=== PATIENT | female | born 1975 | race Caucasian/White ===

== ENCOUNTER 2017-01-26 10:02 | Emergency (ER) | payer MEDICAID ==
[~2017-01-26] VITALS: Ht 160 cm; Wt 70.0 kg
[2017-01-26 10:18] VITALS: BP 128/68
[2017-01-26] MEDS ORDERED: ACETAMINOPHEN 325MG TABLET PO ONE (11:15)
== END 2017-01-26 11:39 | disposition home or self-care (01) ==
LOC: ER 10:51
DX: H72.91 Unspecified perforation of tympanic membrane, right ear (principal); J06.9 Acute upper respiratory infection, unspecified
CPT/HCPCS: 99282

== ENCOUNTER 2017-06-03 11:48 | Emergency (ER) | payer MEDICAID ==
[~2017-06-03] VITALS: Ht 160 cm; Wt 70.0 kg
[2017-06-03] MEDS ORDERED: KETOROLAC 60MG/2ML VIAL IM STA (14:33)
[2017-06-03 14:39] VITALS: BP 117/71
== END 2017-06-03 16:04 | disposition home or self-care (01) ==
LOC: ER 15:57
DX: K08.89 Other specified disorders of teeth and supporting structures (principal); Z98.890 Other specified postprocedural states
CPT/HCPCS: 96372; 99283; J1885

== ENCOUNTER 2017-12-25 17:53 | Emergency (ER) | payer MEDICAID ==
[~2017-12-25] VITALS: Ht 160 cm; Wt 70.0 kg
[2017-12-25 18:25] VITALS: BP 110/91
== END 2017-12-25 22:00 | disposition left against medical advice (07) ==
LOC: ER 18:38
DX: J02.9 Acute pharyngitis, unspecified (principal); R05 Cough; R09.3 Abnormal sputum; H92.09 Otalgia, unspecified ear
CPT/HCPCS: 99281

== ENCOUNTER 2021-03-13 20:40 | Emergency (ER) | payer MEDICAID ==
[~2021-03-13] VITALS: Ht 160 cm; Wt 78.0 kg
[2021-03-13 20:45] VITALS: BP 116/78
[2021-03-13] MEDS ORDERED: ACETAMINOPHEN 325MG TABLET PO ONE (23:45)
[2021-03-14] MEDS ORDERED: ACET-2708 MT (00:36)
== END 2021-03-14 01:13 | disposition home or self-care (01) ==
LOC: ER 20:40
DX: S60.022A Contusion of left index finger without damage to nail, initial encounter (principal); W18.30XA Fall on same level, unspecified, initial encounter; Y93.89 Activity, other specified; Y92.89 Other specified places as the place of occurrence of the external cause; Y99.8 Other external cause status
CPT/HCPCS: 29130; 73130; 81025; 99283

== ENCOUNTER 2022-06-29 14:20 | Emergency (ER) | payer MEDICAID ==
[~2022-06-29] VITALS: Ht 165.1 cm; Wt 86.0 kg
[~2022-06-29 14:20] MED LIST: ACET-2708 MT
[2022-06-29 14:21] VITALS: BP 140/80
[2022-06-29] MEDS ORDERED: TETANUS, DIPHTHERIA, PERTUSSIS VAC/PF 0.5ML (>10YR OLD) IM ONE (15:15)
[2022-06-29] MEDS ORDERED: LIDOCAINE HCL/EPINEPHRINE 1%-EPI 1:100,000 20 ML VIAL INFIL ONE (15:15)
[2022-06-29] MEDS ORDERED: ACETAMINOPHEN 325MG TABLET PO ONE (15:15)
[2022-06-29] MEDS ORDERED: BACITRACIN ZINC OINT UDPKT TOP ONE (15:15)
== END 2022-06-29 16:50 | disposition home or self-care (01) ==
LOC: ER 14:20
DX: S01.01XA Laceration without foreign body of scalp, initial encounter (principal); X58.XXXA Exposure to other specified factors, initial encounter; Y93.89 Activity, other specified; Y92.89 Other specified places as the place of occurrence of the external cause; Y99.8 Other external cause status
CPT/HCPCS: 12002; 90471; 90715; 99283; J3490; Z7610